=== PATIENT | female | born 2000 | race Caucasian/White ===

== ENCOUNTER 2021-12-29 01:38 | Emergency (ER) | payer OTHER ==
[2021-12-29 01:51] VITALS: BP 130/73; PULSE 81; RESP 18; TEMP 97.9
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
[2021-12-29 10:46] LABS: Hepatitis A Antibody IgM Nonreactive (Nonreactive); Hepatitis B Core IgM Nonreactive (Nonreactive)
[2021-12-29 10:47] LABS: Hepatitis B Surface Antigen Nonreactive (Nonreactive); Hepatitis C IgG Antibody Nonreactive (Nonreactive)
[2021-12-31 18:43] LABS: HIV 2 AB Non-Reactive (Non-Reactive); HIV AB P24 Non-Reactive (Non-Reactive); HIV P24 AG Non-Reactive (Non-Reactive)
== END 2021-12-29 03:42 | disposition home or self-care (01) ==
LOC: EC 01:38
DX: Z77.21 Contact with and (suspected) exposure to potentially hazardous body fluids (principal)
CPT/HCPCS: 36415; 80074; 87390; 99283

== ENCOUNTER 2024-02-07 23:44 | Emergency (ER) | payer OTHER | END 2024-02-08 02:00 | disposition home or self-care (01) | LOC: EC 23:44 | CPT/HCPCS: 99282 ==

== ENCOUNTER → 2024-02-16 | Outpatient (CLI) | payer OTHER ==
--- NOTE | 2024-03-24 13:15 | XR ---
Patient: Bucio Breana Ordering Physician: Unknown, Unknown ID: [id number] Phone, Pager: Brianna ne: N/A Pager: N/A : [phone] Age/Gender: 23Y, F Primary Location: N/A Procedure: XR hand complete RT Study Date: 02/16/2024 5:24:00 PM EXAMINATION TYPE: XR hand complete RT DATE OF EXAM: 02/16/2024 6:39 PM CLINICAL INDICATION: Numbness and cramping of the fifth digit COMPARISON: None TECHNIQUE: XR hand complete RT Frontal, lateral and oblique views were obtained. FINDINGS: Normal alignment of the visualized joints. No acute osseous pathology is identified. No e vidence of soft tissue swelling. No significant degeneration IMPRESSION: No acute osseous pathology.
== END | disposition home or self-care (01) ==
LOC: RADXRMAIN 17:08
PROVIDERS: ATTEND Emergency Medicine
DX: S53.401A Unspecified sprain of right elbow, initial encounter (principal); R20.9 Unspecified disturbances of skin sensation; S63.8X1A Sprain of other part of right wrist and hand, initial encounter

== ENCOUNTER 2024-04-30 02:40 | Emergency (ER) | payer OTHER ==
[2024-04-30 02:48] VITALS: TEMP 98.5
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
[2024-04-30 05:24] VITALS: BP 115/78; PULSE 65; RESP 16
== END 2024-04-30 05:56 | disposition home or self-care (01) ==
LOC: EC 02:40
DX: S69.92XA Unspecified injury of left wrist, hand and finger(s), initial encounter (principal); S06.0X0A Concussion without loss of consciousness, initial encounter; Z88.1 Allergy status to other antibiotic agents; Z88.2 Allergy status to sulfonamides; V89.2XXA Person injured in unspecified motor-vehicle accident, traffic, initial encounter; Y92.411 Interstate highway as the place of occurrence of the external cause
CPT/HCPCS: 70450; 72125; 81025; 99284